=== PATIENT | male | born 1950 | race Caucasian/White ===

== ENCOUNTER 2019-10-19 02:27 | Emergency (ER) | payer MEDICARE, OTHER, SELFPAY ==
--- NOTE | ~2019-10-19 | CT_ITS ---
EXAMINATION: CT abdomen pelvis w con DATE: 10/19/2019 03:38 INDICATION: Sharp left lower quadrant pain TECHNIQUE: Computed tomography (CT) of the abdomen and pelvis was performed with 100 cc Omnipaque 350 intravenous contrast. The dose-length product was 1176.94 mGy-cm. Automated exposure control and ite rative reconstruction technique were employed. COMPARISON: CT dated 07/22/2009 FINDINGS: There are peripheral interstitial changes of the lower lungs with interlobular septal thick ening. Calcified granuloma right middle lobe. Heart size normal. No significant vascular abnormality. There is coronary atherosclerosis. There is a 6 mm distal left ureteral stone just proximal to the UVJ with moderate left hydroureterone phrosis. There is perinephric and periureteral edema, consistent with obstruction. Prostate gland is enlarged. There are bilateral low-density lesions in the kidneys, most likely cysts. Nonobstructive bowel gas pattern. Colonic diverticulosis without evidence for diverticulitis. IMPRESSION: 1. 6 mm distal left ureteral stone with moderate left hydroureteronephrosis. Reviewed, dictated and finalized at location B.
[2019-10-19 02:32] VITALS: BP 141/84; PULSE 87; RESP 19; TEMP 36.1; O2SAT 97
[2019-10-19 02:53] LABS: Basophils Absolute Auto 0.1 K/mm3 (0.0-0.1); Basophils Percent Auto 0.7 % (0.2-1.2); Eosinophils Absolute Auto 0.2 K/mm3 (0-0.3); Eosinophils Percent Auto 1.8 % (0-4.4); Hematocrit 42.7 % (42.0-52.0); Hemoglobin 14.2 g/dL (14.0-18.0); Immature Granulocyte Absolute 0.04 K/mm3 (0.00-0.031); Immature Granulocyte Percent A 0.3 % (0-0.5); Lymphocytes Absolute Auto 0.96 K/mm3 (0.9-3.2); Mean Corpuscular HGB Conc 33.3 g/dl (32-36); Mean Corpuscular Volume 90.1 fl (80-100); Monocytes Absolute Auto 1.2 K/mm3 (0.1-0.6); Neutrophils Absolute Auto 9.5 K/mm3 (1.3-6.7); Neutrophils Percent Auto 79.2 % (45.5-73.1); Platelet Count Result 312 k/mm3 (150-375); Red Blood Count 4.74 M/mm3 (4.6-6.20); Red Cell Distribution Width 13.3 % (11.5-14.5)
--- NOTE | 2019-10-19 03:03 | ED.ABDPAIN ---
HPI - Abdominal Pain General Chief Complaint: Abdominal Pain Stated Complaint: left sided abd pain Time Seen by Provider: 10/19/19 02:57 History of Present Illness HPI narrative: Patient presents with his for severe left lower abdominal pain. Started 3 days ago. Pain is been waxing and waning but never gone. Worse with eating. No fever, but he did have chills and sweats. No nausea no vomiting. He has never had anything like this before. He has no history of diverticulitis. He gauges the pain at 6 out of 10 right now.. No blood in the stool. Past medical history includes coronary artery disease with a DC 10 years ago. Hypertension well-controlled on medication. Numerous surgeries. He does not smoke cigarettes, he does drink alcohol occasionally, he does not smoke marijuana. He is retired. MD elicited complaint: abdominal pain Pertinent past history: none Onset (ago): day(s) Pain Consistency: constant Location: LLQ Severity: severe Quality: aching Radiation: RLQ Exacerbating factors: eating Relieving factors: nothing Related Data Allergies Allergy/AdvReac Type Severity Reaction Status Date / Time No Known Allergies Allergy Verified 10/19/19 02:44 Review of Systems Review of Systems: Narrative: CONSTITUTIONAL: Denies fever, but has had chills, and sweats. EYES: Denies visual changes, redness, or discharge. ENT: Denies rhinorrhea, congestion, sore throat, or otalgia. CARDIOVASCULAR: Denies chest pain, palpitations, or edema. RESPIRATORY: Denies cough or dyspnea. GASTROINTESTINAL: He has abdominal pain, but not nausea, vomiting, or diarrhea. GENITOURINARY: Denies dysuria or hematuria. SKIN: Denies rash or itching. MUSCULOSKELETAL: Denies back pain, joint pain, or myalgia. NEUROLOGIC: Denies headache, numbness, or weakness. . [facility] Past Medical History Medical History (Updated 10/19/19 @ 04:20 by Paulette Desai MD) Abdominal pain Surgical History Surgical History (Updated 10/19/19 @ 03:08 by Paulette Desai MD) History of knee surgery History of rotator cuff surgery Social History Social History (Updated 10/19/19 @ 03:06 by Paulette Desai MD) Smoking status: Never smoker Alcohol intake: current Substance use: never Exam Narrative: Exam Narrative: GENERAL: Well-appearing, well-nourished, and in no acute distress. HEAD: Normocephalic, atraumatic. EYES: PERRLA and EOMI. ENT: Nares clear, no rhinorrhea or epistaxis. Mucous membranes moist. NECK: Supple. CHEST: Clear to auscultation. No respiratory distress. HEART: Regular rate and rhythm. No murmur heard. Normal peripheral pulses. ABDOMEN: Soft,tender, nondistended, normal active bowel sounds. EXTREMITIES: Normal range of motion. No edema. SKIN: Warm, dry, no rash. NEURO: No focal deficits. Alert and oriented x3. PSYCH: Normal mood and affect. Course Reevaluation(s) Reevaluation #1: I went back in the room to tell the patient and his about the kidney stone on his left side. It measures 6.5 mm. It may or may not be able to pass into the bladder. I am referring him to the urologist, treating with pain medication, antibiotics, and Flomax. He should strain his urine to find the stone. He may need lithotripsy, or stent. Date: 10/19/19 Time: 04:21 Vital Signs Vital signs: Vital Signs Temperature 96.9 F L 10/19/19 02:32 Pulse Rate 87 10/19/19 02:32 Respiratory Rate 19 10/19/19 02:32 Blood Pressure 141/84 H 10/19/19 02:32 Pulse Oximetry 97 10/19/19 02:32 Temperature 96.9 F L 10/19/19 02:32 Pulse Rate 70 10/19/19 04:18 Respiratory Rate 20 10/19/19 04:18 Blood Pressure 147/76 H 10/19/19 04:18 Pulse Oximetry 98 10/19/19 04:18 MDM - Abdominal Pain Differential Diagnosis Differential diagnosis: Likely other (Colitis or diverticulitis) Medical Records Attestation: I reviewed the patient's medical records. Lab Data Attestation: I reviewed the patient's lab results. Result diagrams: 10/19/19 02:
[2019-10-19 03:06] LABS: Alanine Aminotransferase 24 U/L (4-50); Albumin Level 4.1 g/dL (3.5-5.1); Alkaline Phosphatase 88 U/L (38-126); Aspartate Amino Transferase 24 U/L (17-59); Bilirubin,Total 1.1 mg/dL (0.2-1.3); Blood Urea Nitrogen 23 mg/dL (9-20); Carbon Dioxide 27 mmol/L (22-30); Chloride 103 mmol/L (98-107); Estimated CRCL calculation 41 ml/min; Estimated Glomerular Filt Rate 37; Glucose 156 mg/dL (75-110); Lipase 48 U/L (23-300); Potassium 4.1 mmol/L (3.4-5.0); Sodium 139 mmol/L (137-145)
[2019-10-19 03:13] LABS: Add Urine Microscopic? YES; Appearance Urine Clear (Clear); Bacteria Urine Trace /hpf; Bilirubin Urine 1+ (Negative); Blood Urine Negative (Negative); Color Urine Yellow (Yellow); Glucose Urine UA Negative (Negative); Ketones Urine Negative (Negative); Leukocyte Esterase Ur Negative LEU/UL (Negative); Mucus Urine Rare /lpf; Nitrate Urine Negative (Negative); Protein Urine Negative (Negative); RBC Urine 0-2 /hpf (0-2); Specific Grav Ur 1.023 (1.001-1.035); Squamous Epithelial Cell Urine Rare /hpf (Few); WBC Urine 0-3 /hpf
[2019-10-19] MEDS: SODIUM CHLORIDE 0.9% IV 1,000 ML 999 ML IV CONT (03:21)
[2019-10-19 03:22] VITALS: BP 148/81; PULSE 71; RESP 20; O2SAT 96
[2019-10-19] MEDS: MORPHINE SULFATE 4 MG/ML INJ IV PUSH (03:22)
[2019-10-19 04:18] VITALS: BP 147/76; PULSE 70; RESP 20; O2SAT 98
[2019-10-19] MEDS: TAMSULOSIN HCL 0.4 MG CAPSULE PO (04:38)
[2019-10-19] MEDS: CIPROFLOXACIN 500 MG TAB PO (04:38)
[2019-10-19] MEDS: oxyCODONE/ACETAMINOPHEN 5-325 MG TABLET 1 TABLET PO (04:38)
[2019-10-19 04:40] VITALS: BP 147/76; PULSE 73; RESP 20; O2SAT 98
== END 2019-10-19 04:41 | disposition home or self-care (01) ==
PROVIDERS: Emergency Provider Emergency Medicine; PCP Family Medicine
DX: N13.2 Hydronephrosis with renal and ureteral calculous obstruction (principal)
CPT/HCPCS: 36415; 74177; 80053; 81001; 83690; 85025; 96361; 96374; 99284; A9270; J2270; J7030; Q9967

== ENCOUNTER 2022-07-16 11:51 | Emergency (ER) | payer MEDICARE, OTHER, SELFPAY ==
[2022-07-16 11:56] VITALS: BP 139/73; PULSE 77; RESP 20; TEMP 36.1; O2SAT 98
[2022-07-16 12:38] LABS: Basophils Absolute Auto 0.1 K/mm3 (0.0-0.1); Basophils Percent Auto 1.2 % (0.2-1.2); Eosinophils Absolute Auto 0.3 K/mm3 (0-0.3); Eosinophils Percent Auto 3.9 % (0-4.4); Hemoglobin 14.7 g/dL (14.0-18.0); Immature Granulocyte Absolute 0.02 K/mm3 (0.00-0.031); Immature Granulocyte Percent A 0.2 % (0-0.5); Lymphocytes Absolute Auto 1.02 K/mm3 (0.9-3.2); Lymphocytes Percent Auto 12.5 % (18.3-44.2); Mean Corpuscular Hemoglobin 30.9 pg (26-34); Mean Corpuscular Volume 96.8 fl (80-100); Mean Platelet Volume 8.6 fl (7.4-10.4); Monocytes Absolute Auto 0.8 K/mm3 (0.1-0.6); Monocytes Percent Auto 9.3 % (2.6-8.5); Neutrophils Absolute Auto 5.9 K/mm3 (1.3-6.7); Neutrophils Percent Auto 72.9 % (45.5-73.1); Platelet Count Result 339 k/mm3 (150-375); Red Blood Count 4.75 M/mm3 (4.6-6.20); Red Cell Distribution Width 13.8 % (11.5-14.5); White Blood Count 8.1 K/mm3 (4.5-10.0)
[2022-07-16 12:49] LABS: Prothrombin Time 13.2 Seconds (11.1-14.7)
[2022-07-16 12:50] LABS: Partial Thromboplastin Time 28.4 SECONDS (22.3-36.8)
[2022-07-16 12:51] LABS: Alanine Aminotransferase 24 U/L (6-50); Albumin Level 4.5 g/dL (3.5-5.1); Alkaline Phosphatase 87 U/L (38-126); Anion Gap 6 mmol/L (8-16); Aspartate Amino Transferase 23 U/L (17-59); Bilirubin,Total 0.9 mg/dL (0.2-1.3); Blood Urea Nitrogen 16 mg/dL (9-20); Calcium 9.2 mg/dL (8.4-10.2); Carbon Dioxide 31 mmol/L (22-30); Chloride 102 mmol/L (98-107); Estimated CRCL calculation 55 ml/min; Estimated Glomerular Filt Rate > 60; Glucose 113 mg/dL (65-110); Potassium 4.2 mmol/L (3.4-5.0); Sodium 139 mmol/L (137-145)
--- NOTE | 2022-07-16 13:28 | PC.NURSE ---
Pt came upto intake desk and stated he was going to leave and didn't want to wait any longer. Pt A&Ox4, resp even non-labored. Ambulatory out of ED at this time.
[2022-07-16 13:29] LABS: Appearance Urine Turbid (Clear); Bacteria Urine None Seen /hpf; Bilirubin Urine 3+ (Negative); Blood Urine 2+ (Negative); Color Urine Red (Yellow); Glucose Urine UA Negative (Negative); Ketones Urine Negative (Negative); Leukocyte Esterase Ur 2+ LEU/UL (Negative); Nitrate Urine Positive (Negative); Non Pathogenic Casts 0-2; Protein Urine 2+ mg/dL (Negative); RBC Urine >100 /hpf (0-2); Specific Grav Ur 1.028 (1.001-1.035); Squamous Epithelial Cell Urine Moderate /hpf (Few); Urobilinogen Urine 0.2 mg/dL (<2.0); WBC Urine 21-50 /hpf
[2022-07-16 13:31] LABS: Add Urine Microscopic? YES
== END 2022-07-16 15:41 | disposition left against medical advice (07) ==
PROVIDERS: Emergency Provider Emergency Medicine
DX: R07.9 Chest pain, unspecified (principal); Z53.21 Procedure and treatment not carried out due to patient leaving prior to being seen by health care provider
CPT/HCPCS: 36415; 80053; 81001; 85025; 85610; 85730; 87086; 99199